=== PATIENT | female | born 1955 | race African-American/Black ===

== ENCOUNTER 2016-04-24 11:40 | Emergency (ER) | payer SELFPAY ==
[~2016-04-24] VITALS: Ht 157.5 cm; Wt 84.8 kg
[2016-04-24 13:05] VITALS: BP 108/80
== END 2016-04-24 13:17 | disposition home or self-care (01) ==
LOC: ER 11:40
DX: M16.12 Unilateral primary osteoarthritis, left hip (principal); Z76.0 Encounter for issue of repeat prescription

== ENCOUNTER 2016-05-02 07:07 | Emergency (ER) | payer MEDICAID, OTHER ==
[~2016-05-02] VITALS: Ht 160 cm; Wt 84.8 kg
[2016-05-02 07:47] VITALS: BP 120/62
== END 2016-05-02 08:13 | disposition home or self-care (01) ==
LOC: ER 07:07
DX: M16.12 Unilateral primary osteoarthritis, left hip (principal); Z76.0 Encounter for issue of repeat prescription

== ENCOUNTER 2016-05-22 07:11 | Emergency (ER) | payer OTHER ==
[~2016-05-22] VITALS: Ht 157.5 cm; Wt 83.9 kg
[2016-05-22 08:11] VITALS: BP 119/70
== END 2016-05-22 08:48 | disposition home or self-care (01) ==
LOC: ER 07:12
DX: M16.12 Unilateral primary osteoarthritis, left hip (principal); Z76.0 Encounter for issue of repeat prescription